=== PATIENT | male | born 1935 | race Caucasian/White ===

== ENCOUNTER 2020-04-22 09:28 | Emergency (ER) | payer MEDICARE, BC, SELFPAY ==
--- NOTE | ~2020-04-22 | XR_ITS ---
XR chest 2V 04/22/2020 10:08 Indication: Nonproductive cough for 2 days. Procedure: 2 view chest Comparison: 03/17/2019 Findings: There is chronic predominantly upper lobe pleural thickening/scarring. No acute focal pneum onia, edema or effusion. No pneumothorax. No acute osseous abnormality. Cardiomediastinal silhouette is normal. No acute osseous abnormality. There is diffuse idiopathic skeletal hyperostosis (DISH) of the thoracic spine. Impression: 1: Chronic predominantly upper lobe pleural thickening/scarring. Reviewed, dictated and finalized at location A. Impression: 1: Chronic predominantly upper lobe pleural thickening/scarring.
--- NOTE | 2020-04-22 09:36 | ED.GENADULT ---
HPI - General Adult General Chief complaint: Upper Respiratory Infection Stated complaint: cough/cold Time Seen by Provider: 04/22/20 09:43 Source: patient Mode of arrival: ambulatory Limitations: no limitations History of Present Illness HPI narrative: 85-year-old male patient presents to the [facility] with complaints of runny nose and cough for the past 2 days. Patient states he has been taking Robitussin for his cough. Patient states that he does have chest pain but only when coughing. Denies any chest pain at rest. Patient denies any shortness of breath. Denies any fevers, body aches or chills. Denies any ear pain or sore throat. Related Data Home Medications Medication Instructions Recorded Confirmed latanoprost [Xalatan] 1 drp OPHTHALMIC (EYE) DAILY 04/22/20 04/22/20 lisinopril [Zestril] 1 mg PO DAILY 04/22/20 04/22/20 Allergies Allergy/AdvReac Type Severity Reaction Status Date / Time No Known Allergies Allergy Verified 04/22/20 09:43 Review of Systems Review of Systems: Narrative: CONSTITUTIONAL: Denies fever, chills, or sweats. EYES: Denies visual changes, redness, or discharge. ENT: Positive rhinorrhea, denies congestion, sore throat, or otalgia. CARDIOVASCULAR: Denies chest pain, palpitations, or edema. RESPIRATORY: Positive cough, denies dyspnea. GASTROINTESTINAL: Denies abdominal pain, nausea, vomiting, or diarrhea. GENITOURINARY: Denies dysuria or hematuria. SKIN: Denies rash or itching. MUSCULOSKELETAL: Denies back pain, joint pain, or myalgia. NEUROLOGIC: Denies headache, numbness, or weakness. PSYCHIATRIC: Denies anxiety or depression. 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 There is no relevant family history pertinent to the presenting complaint. Exam Narrative: Exam Narrative: GENERAL: Well-appearing, well-nourished, and in no acute distress. HEAD: Normocephalic, atraumatic. EYES: PERRLA and EOMI. ENT: Nares with erythema and edema noted bilaterally, clear rhinorrhea, no epistaxis. Mucous membranes moist. Posterior pharynx with no erythema, tonsil enlargement, exudates or lesions present. Bilateral TMs are clear with no erythema or foreign bodies to the canal. NECK: Supple. No lymphadenopathy CHEST: Clear to auscultation. No respiratory distress. Patient able talk in clear complete sentences. No tripoding noted. HEART: Regular rate and rhythm. No murmur heard. Normal peripheral pulses. ABDOMEN: Soft, nontender, nondistended, normal active bowel sounds. EXTREMITIES: Normal range of motion. No edema. SKIN: Warm, dry, no rash. NEURO: No focal deficits. Alert and oriented x3. Course Reevaluation(s) Reevaluation #1: Reevaluated patient after flu and x-ray resulted. Discussed with him he is negative for influenza today as well as his x-ray does not show any acute pneumonia. Discussed with him and offered him testing for coronavirus. Patient agrees to this testing. Discussed with him I will send an order and have it faxed over to the hospital and they will call him either today or Friday for a time to get tested. Discussed with him that while he has symptoms he needs to continu
[2020-04-22 09:38] VITALS: BP 117/60; PULSE 67; RESP 16; TEMP 36.9; O2SAT 99
== END 2020-04-22 10:27 | disposition home or self-care (01) ==
PROVIDERS: Emergency Provider Nurse Practitioner Family; PCP Internal Medicine
DX: R05 Cough (principal); J06.9 Acute upper respiratory infection, unspecified; Z20.828 Contact with and (suspected) exposure to other viral communicable diseases; Z87.891 Personal history of nicotine dependence; Z96.653 Presence of artificial knee joint, bilateral; H40.9 Unspecified glaucoma; M10.9 Gout, unspecified; I10 Essential (primary) hypertension; M19.90 Unspecified osteoarthritis, unspecified site
CPT/HCPCS: 71046; 87635; 87804; 99213; C9803; G0463; U0003

== ENCOUNTER → 2020-04-22 10:43 | Outpatient (NON) | payer MEDICARE, BC, SELFPAY ==
[2020-04-22 22:19] LABS: SARS-CoV-2 RNA PCR Negative
== END ==
PROVIDERS: PCP Internal Medicine; Visit Provider Nurse Practitioner Family
DX: J06.9 Acute upper respiratory infection, unspecified (principal); Z20.828 Contact with and (suspected) exposure to other viral communicable diseases
CPT/HCPCS: 87635; C9803; U0003

== ENCOUNTER 2022-07-05 14:46 | Emergency (ER) | payer MEDICARE, BC, SELFPAY ==
[2022-07-05 15:53] VITALS: BP 159/80; PULSE 74; RESP 16; TEMP 37.3; O2SAT 97
--- NOTE | 2022-07-05 16:31 | ED.URI ---
HPI - URI/Sore Throat General Chief Complaint: Upper Respiratory Infection Stated Complaint: cough Time Seen by Provider: 07/05/22 16:43 Source: patient, family (Significant other), RN notes reviewed and old records reviewed Mode of arrival: ambulatory Limitations: no limitations History of Present Illness HPI Narrative: 87-year-old male presents to the [facility] with complaints of 3 days of nonproductive cough. States he has felt a little tired than normal. Feels like he has bronchitis. Was an ex-smoker quit 40 years ago. Related Data Home Medications Medication Instructions Recorded Confirmed latanoprost 0.005 % eye drops 1 drp ophthalmic (eye) DAILY 04/22/20 07/05/22 (Xalatan) lisinopril 20 mg tablet (Zestril) 1 mg PO DAILY 04/22/20 07/05/22 timolol maleate 0.5 % eye drops 1 drp ophthalmic (eye) DIRECTED 07/05/22 07/05/22 Allergies Allergy/AdvReac Type Severity Reaction Status Date / Time No Known Allergies Allergy Verified 07/05/22 15:14 Review of Systems Review of Systems: All systems reviewed & are unremarkable except as noted in HPI and below Constitutional: Constitutional: Reports no additional constitutional complaints, Denies chills and Denies fever(s) Eyes: Eyes: Reports no additional eye complaints ENT: Reports system reviewed and no additional complaints, except as documented Cardiovascular: Cardiovascular: Reports no additional cardiovascular complaints Respiratory: Respiratory: Reports as per HPI, Reports cough, Denies dyspnea and Denies wheezing Gastrointestinal: Gastrointestinal: Reports no additional gastrointestinal complaints Musculoskeletal: Musculoskeletal: Reports no additional musculoskeletal complaints Integumentary/Breasts: Skin/Breast: Reports system reviewed and no additional complaints, except as docu Neurologic: Reports system reviewed and no additional complaints, except as documented Psychiatric: Psychiatric: Reports no additional psychiatric complaints Allergic/Immunologic: Allergic/Immunologic: Reports no additional allergic/immunologic complaints PMFSH Past Medical History Medical History Anemia Fatigue Glaucoma Gout History of hypertrophy of breast HTN (hypertension) Nerve disorder Osteoarthritis Polyneuropathy Testicular hyperfunction Trochanteric bursitis Surgical History Surgical History 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 There is no relevant family history pertinent to the patient complaint. Exam Const: General: healthy appearing, comfortable, no acute distress, well developed, alert and well nourished Nutritional Appearance: well nourished Orientation/consciousness: patient oriented x3 Limitations: no limitations HENMT: Head: normal to inspection Ears: external ears normal, TM's normal bilaterally and EAC's normal Face/Nose/Sinus: Normal external nose present Throat: posterior oropharynx normal Eyes: General: appearance normal, both eyes and all related structures Conjunctivae: conjunctivae normal Pupils: Equal, round and reactive pupils present Neck: Neck: normal visual inspection, full ROM, no lymphadenopathy and no meningeal signs Chest: Chest palpation & inspection: normal inspection of the chest Resp: Effort & Inspection: normal respiratory effort and no use of accessory muscles Auscultation: clear to auscultation bilaterally, no crackles, no rales, no rhonch
== END 2022-07-05 17:03 | disposition home or self-care (01) ==
PROVIDERS: Emergency Provider Nurse Practitioner; PCP Internal Medicine
DX: J40 Bronchitis, not specified as acute or chronic (principal); Z87.891 Personal history of nicotine dependence; I10 Essential (primary) hypertension; M19.90 Unspecified osteoarthritis, unspecified site; H40.9 Unspecified glaucoma; M10.9 Gout, unspecified; Z96.653 Presence of artificial knee joint, bilateral
CPT/HCPCS: 99213; G0463